=== PATIENT | female | born 1945 | race Caucasian/White ===

== ENCOUNTER 2016-04-02 14:26 | Inpatient (IN) | payer MEDICARE ==
[~2016-04-02] VITALS: Ht 162.6 cm; Wt 114.5 kg
[2016-04-02] MEDS ORDERED: ANORO ELLIPTA1 EACH INH (14:58)
[2016-04-02] MEDS ORDERED: CALCIUM 600 +1 EAC3 PO (14:59)
[2016-04-02] MEDS ORDERED: FUROSEMIDE20 MG PO (15:01)
[2016-04-02] MEDS ORDERED: CATAPRES0.1 MG PO (15:01)
[2016-04-02] MEDS ORDERED: SYNTHROID125 MCG PO (15:02)
[2016-04-02] MEDS ORDERED: METOPROLOL TART50 MG PO (15:03)
[2016-04-02] MEDS ORDERED: MUCINEX D1 TAB.SR . PO (15:04)
[2016-04-02] MEDS ORDERED: OMEPRAZOLE20 M1 PO (15:05)
[2016-04-02] MEDS ORDERED: K-DUR20 MEQ PO (15:05)
[2016-04-02] MEDS ORDERED: ZOCOR40 MG PO (15:06)
[2016-04-02] MEDS ORDERED: SINGULAIR10 MG PO (15:06)
[2016-04-02] MEDS ORDERED: DIOVAN HCT 80-11 TAB PO (15:07)
[2016-04-02] MEDS ORDERED: TOPAMAX50 MG PO (15:07)
[2016-04-02] MEDS ORDERED: VITAMIN D5000 UNIT PO (15:08)
[2016-04-02] MEDS ORDERED: KLONOPIN0.5 MG PO (15:10)
[2016-04-02] MEDS ORDERED: IPRAT-ALBUT 0.5-3 ML UPD (15:12)
[2016-04-02] MEDS ORDERED: ZOFRAN4 MG PO (15:13)
[2016-04-02] MEDS ORDERED: EFFEXOR XR75 MG PO (15:14)
[2016-04-02] MEDS ORDERED: TRAZODONE HCL150 MG PO (15:14)
[2016-04-02 16:06] LABS: BASOPHILS 0.3 % (0.0-2.0); EOSINOPHILS 0.8 % (0-7); HEMATOCRIT 42.3 % (36.0-48.0); HEMOGLOBIN 13.7 g/dL (12-16); IMMATURE GRANULOCYTES 0.2 % (0-5); LYMPHOCYTES 16.3 % (15-50); MCH 30.9 pg (26.0-34.0); MCHC 32.4 g/dL (31.0-37.0); MCV 95.3 fL (80.0-100.0); MEAN PLATELET VOLUME 11.8 fL (7.4-10.4); MONOCYTES 8.3 % (2-11); NEUTROPHILS 74.1 % (40-80); PLATELET COUNT 224 10x3/uL (130-400); RBC 4.44 10x6/uL (4.00-5.40); RDW 14.1 % (11.5-14.5)
[2016-04-02 16:19] VITALS: BP 131/86
[2016-04-02 16:37] LABS: ALBUMIN 4.3 g/dL (3.4-5.0); ANION GAP 18.5 mmol/L (8-16); BILIRUBIN - TOTAL 0.63 mg/dL (0.2-1.3); CARBON DIOXIDE 27.5 mmol/L (21.0-32.0); CHOL - HDL RATIO 3.1 ratio (2.3-4.1); CREATININE - SERUM 1.2 mg/dL (0.6-1.3); LDL-HDL RATIO 1.7 ratio (1.5-3.5); PROTEIN - SERUM 7.3 g/dL (6.4-8.2); THYROID STIMULATING HORMONE 8.08 uIU/mL (0.36-3.74)
--- NOTE | 2016-04-02 18:24 | NUR ---
PATIENT IS RESTLESS, ANXIOUS, UNREDIRECTABLE AND AGITATED. HALDOL 5MG IM ADMINISTERED PER PHYSICIAN ORDERS.
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
[2016-04-02 19:30] VITALS: BP 141/85
--- NOTE | 2016-04-02 20:33 | NUR ---
B) Patient remains suspicious and she is watchful, she is ready for bed. She can stand and pivot and transfer to get in bed, but she does not ambulate. Bilat. lower legs edematous. Patient did c/o yeast in groinal area. I) Provide prescribed meds. R) Patient is resting she doesn't want to do anything at this time. Will offer meds shortly. P) Continue plan of care.
--- NOTE | 2016-04-03 08:15 | NUR ---
IN AND OUT CATH DONE TO OBTAIN URINE FOR UA WITH C & S. TAKEN TO LAB.
[2016-04-03 08:35] LABS: APPEARANCE SLT CLOUDY (CLEAR); BACTERIA MODERATE /hpf (NONE SEEN); BILIRUBIN NEGATIVE (NEGATIVE); COLOR YELLOW (YELLOW); GLUCOSE NEGATIVE (NEGATIVE); KETONE SMALL mg/dL (NEGATIVE); LEUKOCYTE ESTERASE 1+ (NEGATIVE); NITRITE NEGATIVE (NEGATIVE); PROTEIN NEGATIVE (NEGATIVE); RED CELLS - URINE 0-5 /hpf (0-5); SPECIFIC GRAVITY 1.025 (1.005-1.020); UROBILINOGEN NORMAL (NORMAL); WHITE CELLS - URINE 25-50 /hpf (0-5)
--- NOTE | 2016-04-03 14:24 | NUR ---
(B)RECEIVED PATIENT LAYING IN BED. SUSPICIOUS AND GUARDED. WILL FLENCH WHEN REACHING OUT TO TOUCH HER. ORIENTED X3. RELATES THE REASON FOR HOSPITALIZATION "I WAS TOLD TO GET MY MEDICATION ADJUSTED." WHEN DISCUSSING THE REASON FOR ADMISSION WAS REPORTED SHE BELIEVES SHE CAN HEAR PEOPLE'S THOUGHTS. PATIENT NODS "YES" AND WHEN ASKED IF SHE IS STILL HEARING PEOPLES THOUGHTS SHE CONFIRMED "YES" THAT TELL HER "WHAT TO DO AND WHAT NOT TO DO. SOMETIMES BAD THINGS AND SOMETIMES GOOD THINGS." SOCIALLY WITHDRAWN. TALKED WITH PATIENT SHE IS HAVING AUD NARANJO. (I)ADMINISTER MEDS AND MONITOR COMPLIANCE. ENCOURAGE PATIENT TO NOTIFY STAFF IF HEARS THOUGHTS OR VOICES. (R)MED COMPLIANT. REMIANS SOCIALLY WITHDRAWN. SCANS ROOM. ONLY RESPONDS WHEN APPROACHED BY STAFF. (P)CONTINUE POC AND MAINTAIN FALL PRECAUTIONS.
[2016-04-03 17:07] VITALS: Ht 162.6 cm; Wt 114.5 kg
[2016-04-03 20:00] VITALS: BP 114/73
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
[2016-04-04 07:41] VITALS: BP 104/70
--- NOTE | 2016-04-04 11:07 | NUR ---
PT IS RESISTANT TO CARE AND VERY AGITATED THIS MORNING. REDIRECTION DONE NEEDED. ORIENTED TO PERSON ONLY. FLAT AFFECT WITH NO EYE CONTACT. NO SIGNS OF HALLUCINATIONS NOTED. FALL PRECAUTIONS MAINTAINED. MED COMPLIANT. NO AGGRESSION NOTED. WILL CONTINUE WITH PLAN OF CARE.
[2016-04-04 19:30] VITALS: BP 106/74
--- NOTE | 2016-04-04 20:38 | NUR ---
RECEIVED SETTING IN RECLINER WITH PEERS AT HER SIDE. NOT SOCIALIZING. CALM AND COOPERAITVE WITH CARE AND AND ASSESSMENT. NO SIGNS OF AGGRESSION. NO SCREAMING OUT. ENCOURAGE TO EXPRESS NEEDS. PM MEDS GIVEN ORDERED. CONTINUES TO REST QUIETLY IN RECLINER. CONTINUE PLAN OF CARE.
[2016-04-05 07:38] VITALS: BP 112/64
[2016-04-05 10:11] LABS: VITAMIN D 25 HYDROXY 45.4 ng/mL (30.0-100.0)
--- NOTE | 2016-04-05 10:31 | PSY ---
PATIENT NAME:JULIO LEE MEDICAL RECORD: [id number] : 49 LOCATION:[facility]el2 ADMISSION DATE: 04/02/16 ACCOUNT: [id number] PSYCHIATRIC EVALUATION DATE OF EVALUATION: 04/03/16 IDENTIFYING DATA: This is one of numerous lifetime psychiatric contacts and hospitalizations, but the first skilled nursing admission for this 70-year-old white female. HISTORY OF PRESENT ILLNESS: This patient has received psychiatric care for the majority of her adult life. She has carried a diagnosis of schizophrenia, paranoid type in the past, although it is of interest to note that she is not currently receiving a routine neuroleptic medications. She is a resident of a local fdc and had become increasingly suspicious, paranoid, uncooperative and noncompliant with staff. Because of worsening psychosis and potential for harm to self and/or others, the patient was admitted. The patient has been hospitalized at the psychiatric unit at [facility] in the past. She has had other hospitalizations at [facility] in the past, but details are not currently available. There is a history also of developmental delay. MEDICATION: At the time of admission, current reported medications have included clonidine, Lasix, Synthroid, Lopressor, omeprazole, potassium, Zocor, Topamax, Diovan, trazodone and Zofran as well as on the Effexor. PAST MEDICAL HISTORY: The patient has morbid obesity. She has a history of hypertension, hypothyroidism, hypercholesterolemia, inhalant allergies and GERD. FAMILY HISTORY: Noncontributory. SOCIAL HISTORY: The patient is not an active smoker, although she was previously. She denies alcohol or drug use. ALLERGIES: INCLUDE AMPICILLIN AND PREDNISONE. MENTAL STATUS: On interview, this is a morbidly obese, extremely suspicious and paranoid white female who responds minimally to the examiner. She has a heightened startle response. She clearly appears to be attending to internal stimuli. The patient states that she can hear other people's thoughts and that she hears voices constantly. She exhibits some paranoid delusional ideation regarding people in her surroundings. She does not respond unless directly addressed. Mood is quite anxious. Affect is peculiar. Speech is low in volume at times; other times loud and flow of thought shows severe loosening of associations. Content of thought is floridly positive for auditory hallucinations, delusions and ideas of reference. The patient is oriented to person and the fact that she is hospitalized, she does not cooperate further for sensorium testing. DIAGNOSTIC IMPRESSION: AXIS I: Schizophrenia, paranoid type - chronic. AXIS II: No diagnosis. AXIS III: Hypothyroidism, hypertension, gastroesophageal reflux disease, inhalant allergies and morbid obesity. AXIS IV: Severe. AXIS V: 32. PLAN: 1. The patient is admitted for further medication revision. 2. Diet and activities as tolerated. 3. We will coordinate with fdc and referring agencies regarding followup care. TRANSINT:[id number] Voice Confirmation ID: [id number] DOCUMENT ID: [id number] KALEY ISRAEL III, MD at 1031 CC: [id number] DICTATION DATE: 04/03/161833 BEAN DUMPER: 04/03/162012 ADM IN [facility] [address] [place] [address]
--- NOTE | 2016-04-05 17:58 | NUR ---
Oriented to name only, flat affect, sits quietly isolated from others. Cooperative with care. No paranoia nor aggression. No evidence of hallucinations. Med compliant. Redirect and reorient as need. No evidence of reorientation. Fall precatuions in place, chair alarm in place and functioning properly. Continue with plan of care.
--- NOTE | 2016-04-05 19:57 | NUR ---
RECEIVED IN DAYROOM. SETTING AT TABLE WITH STAFF AND PEERS. NOT SOCIALIZING. WATCHING OTHERS. CALM AND COOPERATIVE WITH CARE AND ASSESSMENT. NO SIGNS OF AGGRESSION. NO SIGNS OF HALLUCINATIONS. REDIRECT AND REORIENT NEEDED. CONTINUES TO SET QUIETLY AT TABLE. CONTINUE PLAN OF CARE
[2016-04-05 19:58] VITALS: BP 84/42
[2016-04-06 03:09] LABS: RAPID PLASMA REAGIN Non Reactive (Non Reactive)
[2016-04-06 09:19] LABS: FOLATE (FOLIC ACID) - SERUM 9.5 ng/mL (>3.0)
--- NOTE | 2016-04-06 09:34 | NUR ---
Nutrition Follow Up: Chart reviewed. Pt is eating 68% on a regular diet. +BM 04/04/16. Meds noted including Lasix and Vit D. No new labs to assess. Wt loss since admit - scales? Pt with good po intake at this time. Rec continue current diet. RD following.
[2016-04-06 10:07] VITALS: BP 104/46
--- NOTE | 2016-04-06 10:30 | NUR ---
Alert and oriented to name and place states " at the hospital long term unit for my medications to be adjusted." Pleasant mood, making better eye contact today and is looking around the room at others. No noted or verbalized paranoia of hearing people. No aggression. med compliant. Fall precautions in place. Continue with plan of care and monitoring.
--- NOTE | 2016-04-06 10:39 | PN ---
PATIENT:JULIO LEE MEDICAL RECORD: [id number] LOCATION:[facility] Goode ADMISSION DATE: 04/02/16 PROGRESS NOTE DATE OF SERVICE: 04/05/2016 SUBJECTIVE: The patient states that she is cold. OBJECTIVE: The staff reports the patient is exhibiting very prominent memory deficits. She requires reorientation from time to time. During the interview, the patient seemed confused as to where she had been living prior to coming to the hospital. On exam, mood is somewhat perplexed. Affect is very shallow. Speech is terse with a great deal of latency. Content of thought is negative for overt psychosis. Sensorium testing reveals the patient is oriented to person and the fact that she is in a hospital, she is not correctly oriented as to time. She shows deficits in all phases of memory. ASSESSMENT: Primary diagnosis is Alzheimer dementia with behavioral disturbance, past history of schizophrenia. PLAN: 1. We will add Zyprexa 5 mg b.i.d. 2. Continue other current medications. 3. Continue supportive therapy. TRANSINT:[id number] Voice Confirmation ID: [id number] DOCUMENT ID: [id number] KALEY ISRAEL III, MD at 1039 CC: [id number] DICTATION DATE: 04/05/16 1155 SUPERVISOR BRIAR SHOP: 04/05/16 1336 ADM IN [place] [id number] [place] [id number]
[2016-04-06 19:39] VITALS: BP 97/65
--- NOTE | 2016-04-06 20:43 | NUR ---
B) Patient is hallucinating, she denenies, she is watchful and guarded and gets short when asked the same question or any question as she is unable to focus on what is being asked of her or if it is her voices. She will say she is able to read minds. Patient is able to stand and transfer, but mostly stays in the w/c. I) Provide prescribed meds. R) Patient is compliant with meds, but quite suspicious, she asked what each med was. P) Continue plan of care.
[2016-04-07 07:40] VITALS: BP 118/65
--- NOTE | 2016-04-07 10:37 | PN ---
PATIENT:JULIO LEE MEDICAL RECORD: [id number] LOCATION:[facility]FR[facility] Pandey112 ADMISSION DATE: 04/02/16 PROGRESS NOTE DATE OF SERVICE: 04/06/2016 SUBJECTIVE: No new complaint. OBJECTIVE: The patient is eating somewhat better. She is for the most part quiet and cooperative. She is tolerating medication changes well. On exam, mood is euthymic. Affect is very reserved. Speech rather terse. Content of thought is negative for overt psychosis. Sensorium shows no change. ASSESSMENT: No change in diagnosis. PLAN: 1. Maintain current medications. 2. Continue supportive therapy. TRANSINT:[id number] Voice Confirmation ID: [id number] DOCUMENT ID: [id number] KALEY ISRAEL III, MD at 1037 CC: [id number] DICTATION DATE: 04/06/16 1213 STATOR TESTER: 04/06/16 1230 ADM IN [place] [id number]
--- NOTE | 2016-04-07 14:30 | NUR ---
(B) PATIENT SITTING IN A CHAIR AT THE NURSE'S STATION. ORIENTED TO SELF, [facility]. RELATES REASON FOR HOSPITALIZATION IS "TO GET MY MEDICATON ADJUSTED." APPROPRIATE WHEN APPROACHED HOWEVER IS WITHDRAWN AND DOES NOT INITIATE CONVERSATION. SITS ALONE AND WATCHES OTHERS. (I)ADMINISTER MEDS AND MONITOR COMPLIANCE. ENCOURAGE PATIENT TO INTERACT WITH PEERS AND PARTICIPATE IN GROUP ACTIVITIES. (R)MED COMPLIANT. REMAINS SOCIALLY WITHDRAWN AND DOES NOT INITIATE INTERACTION. COOPERATIVE WITH UNIT MILEU. (P)CONTINUE POC AND MAINTAN FALL PRECAUTIONS.
--- NOTE | 2016-04-07 20:38 | NUR ---
RECEIVED IN DAYROOM. SETTING IN WHEELCHAIR WITH PEERS BY HER SIDE. NOT SOCIALIZING. CALM AND COOPERATIVE WITH CARE AND ASSESSMENT. NO SIGNS OF AGGRESSION. REDIRECT AND REORIENT NEEDED. SETTING IN HALLWAY QUIETLY WITH PEERS BY HER SIDE. CONTINUE PLAN OF CARE
[2016-04-08 08:04] VITALS: BP 108/66
--- NOTE | 2016-04-08 11:22 | PN ---
PATIENT:JULIO LEE MEDICAL RECORD: [id number] LOCATION:[facility] InfanteHansel112 ADMISSION DATE: 04/02/16 PROGRESS NOTE DATE OF SERVICE: 04/07/2016 SUBJECTIVE: No new complaint. OBJECTIVE: The patient is exhibiting a fair amount of latency in her speech. She does continue to have persistent memory difficulties. We will ask Dr. Jj to assess her. On exam, mood is euthymic, affect is rather ____ and constricted. Speech is low in volume and show latency. Content of thought negative for overt psychosis. Sensorium shows no change. ASSESSMENT: No change in diagnoses. PLAN: 1. Maintain current medications. 2. Continue supportive therapy. TRANSINT:[id number] Voice Confirmation ID: [id number] DOCUMENT ID: [id number] KALEY ISRAEL III, MD at 1122 CC: [id number] DICTATION DATE: 04/07/16 1205 SYRUP MAKER COOK: 04/07/16 1937 ADM IN [facility] [address] [place] [id number]
--- NOTE | 2016-04-08 14:33 | NUR ---
(B)PATIENT SITTING IN A CHAIR AT THE NURSE'S STATION. ORIENTED X3. RELATES REASON FOR HOSPITALIZATION "COME IN TO GEY MY MEDICATIONS ADJUSTED." SOCIALLY WITHDRAWN. CALM AND COOPERATIVE. MAKES NEEDS KNOWN TO STAFF, (I)ADMINISTER MEDS AND MONITOR COMPLIANCE. ENCOURAGE TO INTERACT WITH PEERS. (R)MED COMPLIANT. REMAINS WITHDRAWN. SITS AND WATCHES TV. POOR INTERACTION. (P)CONTINUE POC AND MAINTAIN FALL PRECAUTIONS.
[2016-04-08 19:30] VITALS: BP 91/41
--- NOTE | 2016-04-09 00:35 | NUR ---
B) Showered with assist of two staff. Initially refused but explained to patient that she has a strong body odor and needs to be cleaned well in je area and under abdominal folds to put powder to heal these reddened yeasty areas. No paranoid delusional statements made. Very little conversation, quiet, isolates from others. Low BP this evening, checked x 3. BP= 86/42, 89/38, 91/41. Patient was experiencing weakness across her shoulders and down her right leg, "I don't feel well." I) Administer medications as ordered, redirect and reorient PRN. R) Compliant with medications. HS doses of Lopressor and Clonidine were held due to her low BP. No tearful episodes this evening. No signs of altered reality perception. P) Continue to monitor per plan of care.
--- NOTE | 2016-04-09 03:47 | PN ---
PATIENT:JULIO LEE MEDICAL RECORD: [id number] LOCATION:[facility] Goode ADMISSION DATE: 04/02/16 PROGRESS NOTE DATE OF SERVICE: 04/08/2016 SUBJECTIVE: No new complaint. OBJECTIVE: The patient has been doing fairly well. She is tolerating all medications without any difficulty. She has been cooperative with staff. On exam, mood is euthymic. Affect is very reserved. Speech is low in volume. Content of thought is negative for overt psychosis. Sensorium shows no change. ASSESSMENT: No change in diagnosis. PLAN: 1. Continue all current medications. 2. Continue supportive therapy. TRANSINT:[id number] Voice Confirmation ID: [id number] DOCUMENT ID: [id number] KALEY ISRAEL III, MD at 0347 CC: [id number] DICTATION DATE: 04/08/16 1204 AUTOMATIC VULCANIZING LEAD OPERATOR: 04/08/[address] [facility] [address] [place] [address]
[2016-04-09 06:30] VITALS: BP 122/58
[2016-04-09 08:12] VITALS: BP 111/59
--- NOTE | 2016-04-09 11:00 | NUR ---
Dr. Jj came and provided a SLUMS test. Patient scored a 21/30.
--- NOTE | 2016-04-09 13:49 | NUR ---
B.) Alert and oriented to name,place and situation. States, " I'm here to have my medications adjusted. Does not converse unless spoken to. I.) Administer medications and monitor compliance. Redirect and reorient as need. Encourage socailization with peers. Monitor safety. R.) Complaint with medications, isolatory and does not socialize with others unless approached. Does verbalize needs. Participated in group. Sits quietly scanning room and observing. P.) Continue plan of care.
--- NOTE | 2016-04-09 16:10 | NUR ---
When this nurse approached patient to turn w/c around patient jumped even though nurse explained that she would need to turn her around as she had requested to color some pictures with crayons at the table. Patient suspicious, but less nervous than when first admitted. Continue to monitor behavior.
[2016-04-09 19:24] VITALS: BP 110/59
--- NOTE | 2016-04-09 22:41 | NUR ---
B) Recieved sitting in the day room, alert and oriented, knows she is here to have her medications adjusted, calm and quiet, keeps to herself, I) Administered medications, encourged conversation, R) Medication compliant, friendly when spoken to, pleasant, P) Continue plan of care, continue to monitor.
[2016-04-10 07:56] VITALS: BP 137/68
--- NOTE | 2016-04-10 12:54 | PN ---
PATIENT:JULIO LEE MEDICAL RECORD: [id number] LOCATION:[facility] PandeyBrian ADMISSION DATE: 04/02/16 PROGRESS NOTE DATE OF SERVICE: 04/09/2016 SUBJECTIVE: The patient's case was discussed with staff. She has no new complaint. OBJECTIVE: The patient is in good behavioral control with limited insight about her condition. She does tolerate her medicines well. ASSESSMENT: No change in diagnoses. PLAN: Current medicines and therapies have been reviewed and will be maintained. Her long-term prognosis is guarded. TRANSINT:[id number] Voice Confirmation ID: [id number] DOCUMENT ID: [id number] EDWARD GILMORE MD at 1254 CC: [id number] DICTATION DATE: 04/09/16 1222 FARM MANAGEMENT AGENT: 04/09/16 1719 ADM IN [place] [id number] [place] [address]
--- NOTE | 2016-04-10 12:54 | NUR ---
B) Patient is awake and alert, she says she is here to get her medications changed, she is content to color and do word searches. She can stand and needs assist to transfer. Have not seen her watching people today and does not act like she is hearing voices. I) Provide prescribed meds, redirect and reorientate as needed. R) Patient is compliant with medications and she has been very pleasant, she still has reddened areas in her perineal area and under breasts. P) Continue plan of care.
[2016-04-10 19:30] VITALS: BP 93/50
--- NOTE | 2016-04-11 02:25 | NUR ---
B) Recieved sitting in the day room, watching TV, alert and oriented x 3, calm and cooperative with staff, I) Administered perscribed medications, R) Medication compliant, social with staff, keeps to herself, P) Continue plan of care, continue to monitor.
[2016-04-11 08:38] VITALS: BP 127/69
--- NOTE | 2016-04-11 09:48 | NUR ---
PT IS CALM, COOPERATIVE. MED COMPLIANT. NO AGGRESSION NOTED. NO HALLUCINATIONS NOTED. ORIENTED TO PERSON ONLY. REDIRECTED NEEDED. FALL PRECAUTIONS MAINTAINED. WILL CONTINUE TO MONITOR AND CONTINUE WITH PLAN OF CARE.
[2016-04-11 19:30] VITALS: BP 102/58
--- NOTE | 2016-04-11 19:51 | NUR ---
REECIVED IN DAYROOM. SETTING IN WHEELCHAIR WITH PEERS AT HER SIDE. COLORING AT THIS TIME.. CALM AND COOPERATIVE WITH CARE AND ASSESSMENT. NO SIGNS OF AGGRESSION. NO SIGNS OF PARANOIA. ENCOURAGE TO EXPRESS NEEDS. REMAINS AT TABLE COLORING . CONTINUE PLAN OF CARE
[2016-04-12 11:20] VITALS: BP 113/59
[2016-04-12] MEDS ORDERED: DIFLUCAN100 MG PO (12:04)
[2016-04-12] MEDS ORDERED: ZYPREXA ZYDI5 MG/TAB PO (12:06)
[2016-04-12] MEDS ORDERED: HCTZ25 MG PO (12:06)
[2016-04-12] MEDS ORDERED: DIOVAN80 MG PO (12:06)
[2016-04-12] MEDS ORDERED: FLORAJEN3 CAPS460 MG PO (12:07)
[2016-04-12] MEDS ORDERED: VITAMIN B-121000 MCG PO (12:07)
--- NOTE | 2016-04-12 17:42 | NUR ---
Alert and oriented times 3, calm and ccoperative. Smiling today and is social with staff. Patient is social with other peers today. No paranoia nor aggression. Med compliant. Participates n group. Fall safety maintained. Continue with plan of care.
--- NOTE | 2016-04-12 19:41 | NUR ---
RECEIVED IN DAYROOM. SETTING QUIETLY IN CHAIR. CALM AND COOPERATIVE WITH CARE AND ASSESSMENT. NO SIGNS OF AGGRESSION. NO SIGNS OF PARANOIA. ENCOURAGE TO EXPRESS NEEDS. CONTINUES TO SET ING CHAIR QUIETLY. CONTINUE PLAN OF CARE
[2016-04-12 20:37] VITALS: BP 86/44
--- NOTE | 2016-04-13 01:03 | PN ---
PATIENT:JULIO LEE MEDICAL RECORD: [id number] LOCATION:[facility] Infante[facility]el112 ADMISSION DATE: 04/02/16 PROGRESS NOTE DATE OF SERVICE: 04/12/2016 SUBJECTIVE: No new complaint. OBJECTIVE: On approach, the patient is pleasant and cooperative. Mood is euthymic. Affect is calm. She is tolerating medications well, no behavioral problems. Sensorium is unchanged. ASSESSMENT: No change in diagnosis. PLAN: 1. Continue all current medications. 2. Anticipate discharge tomorrow. TRANSINT:[id number] Voice Confirmation ID: [id number] DOCUMENT ID: [id number] KALEY ISRAEL III, MD at 0103 CC: [id number] DICTATION DATE: 04/12/16 1211 CONTROL ELECTRICIAN: 04/12/16 1256 ADM IN [place] [id number] [place] [address]
--- NOTE | 2016-04-13 09:10 | NUR ---
Nutrition Follow Up: Chart reviewed. Pt is eating 100% meal avg on a Regular diet. +BM 04/12/16. Meds noted including Lasix. No new labs to assess. Rec continue current diet. RD following.
[2016-04-13 14:08] VITALS: BP 117/65
--- NOTE | 2016-04-13 18:28 | NUR ---
RECEIVED THIS AM SITTING IN WHEELCHAIR IN HALLWAY AT NURSES STATION.IS ORIENTED TO SELF ONLY.NO AGGRESSION OBSERVED.IS COMPLIANT WITH MEDS.COOPERATIVE WITH STAFF.WILL CONTINUE WITH PLAN OF CARE,MONITOR FOR CHANGES AND SAFETY.
[2016-04-13 19:28] VITALS: BP 107/46
--- NOTE | 2016-04-13 20:54 | NUR ---
RECEIVED IN DAYROOM. SETTING IN WHEELCHAIR WITH PEERS AT HER SIDE. SOCIALIZING WITH PEERS AT TIMES. IN GOOD SPIRITS. ENCOURAGE TO EXPRESS NEEDS. PM MEDS GIVEN ORDERED. TRANSFERE TO BED AT THIS TIME. CONTINUE PLAN OF CARE
--- NOTE | 2016-04-14 05:47 | PN ---
PATIENT:JULIO LEE MEDICAL RECORD: [id number] LOCATION:[facility] Pandey112 ADMISSION DATE: 04/02/16 PROGRESS NOTE DATE OF SERVICE: 04/13/2016 SUBJECTIVE: The patient expresses disappointment that she is not being discharged today. OBJECTIVE: Unfortunately, due to a lack of timely submission of the original H&P, a level 2 screen by [employer] is now required, does delaying the patient's discharge. Aside from this, the patient is stable. No change in treatment plan is indicated. On exam, the patient is somewhat irritable. Affect is slightly brittle. Speech is fluent. Content of thought is unchanged. Sensorium is unchanged. ASSESSMENT: No change in diagnosis. PLAN: 1. We will await results of level 2 screen. 2. Continue current treatment plan. TRANSINT:[id number] Voice Confirmation ID: [id number] DOCUMENT ID: [id number] KALEY ISRAEL III, MD at 0547 CC: [id number] DICTATION DATE: 04/13/16 1209 FOUNDER AND CHIEF TECHNICAL OFFICER: 04/13/16 1247 ADM IN [place] [id number] [place] [id number]
[2016-04-14 07:57] VITALS: BP 127/58
--- NOTE | 2016-04-14 13:00 | NUR ---
B) Patient is awake and alert, she is oriented times three, she has not made any mention of hallucinations or acted like she is listening to voices and no mention of her being able to read minds today. Patient is able to assist and transfer with assist, but she does not ambulate. Uses a w/c and staff mostly helps her. I) Provide prescribed meds and encourage groups. R) Patient is compliant with meds and she is interacting with staff and some peers. P) Continue plan of care.
--- NOTE | 2016-04-14 17:05 | PN ---
PATIENT:JULIO LEE MEDICAL RECORD: [id number] LOCATION:[facility] Goode ADMISSION DATE: 04/02/16 PROGRESS NOTE DATE OF SERVICE: 04/14/2016 SUBJECTIVE: No new complaint. OBJECTIVE: The patient has been doing well. She is tolerating medications without difficulty. Mood and affect have cleared considerably. Sensorium is clear and we are simply awaiting approval from [employer]. On exam, mood is euthymic. Affect is bland. Speech is fairly fluent. Content of thought is negative for overt psychosis. Sensorium is unchanged. ASSESSMENT: No change in diagnoses. PLAN: 1. Maintain present medications. 2. Continue supportive therapy. TRANSINT:[id number] Voice Confirmation ID: [id number] DOCUMENT ID: [id number] KALEY ISRAEL III, MD at 1705 CC: [id number] DICTATION DATE: 04/14/16 1112 SPLICING TECHNICIAN: 04/14/16 1140 ADM IN [place] [id number] [place] [address]
[2016-04-14 19:27] VITALS: BP 117/64
--- NOTE | 2016-04-14 23:35 | NUR ---
B)Recieved sitting in the day room, alert and oriented, calm and cooperative, social with staff, ambulates by wheelchair, I) Administered perscribed medications whole withwater, R) Medication compliant, friendly and pleasant, P) Continue plan of care, continue to monitor.
[2016-04-15 07:50] VITALS: BP 126/55
--- NOTE | 2016-04-15 11:46 | NUR ---
B) Patient is awake and alert, she is calm, oriented x3, has not made any complaints about hearing voices or believing she can read people's minds. She is pleasant and calmly waiting for d/c. I) Provide prescribed meds. R) Patient does have yeast under her breasts in abdominal fold and je area. The area is odoriferous and has to be cleansed daily with powder applied, she is on oral diflucan, the areas are healing, but it remains with yeast. Patient is compliant with meds and unit milieu, she interacts in groups and activities. P) Continue plan of care.
[2016-04-15 22:07] VITALS: BP 114/64
--- NOTE | 2016-04-16 00:46 | NUR ---
B) Recieved sitting in the day room, alert and oriented X 3, watching TV, calm and cooperative with staff, I) Administered perscribed medications, redirect and oriented as needed, R) Medication compliant, social with staff, friendly and pleasant, P) Continue plan of care, continue to monitor.
[2016-04-16 08:55] VITALS: BP 106/66
--- NOTE | 2016-04-16 09:20 | PN ---
PATIENT:JULIO LEE MEDICAL RECORD: [id number] LOCATION:[facility] ADMISSION DATE: 04/02/16 PROGRESS NOTE DATE OF SERVICE: 04/15/2016 SUBJECTIVE: No new complaint. OBJECTIVE: The patient has been pleasant, alert and cooperative. She is tolerating medications well. On exam, mood is euthymic. Affect bland. Speech is fairly fluent. Content of thought is negative for overt psychosis. Sensorium unchanged. ASSESSMENT: No change in diagnosis. PLAN: 1. Continue current medications. 2. Continue supportive therapy. TRANSINT:[id number] Voice Confirmation ID: [id number] DOCUMENT ID: [id number] KALEY ISRAEL III, MD at 0920 CC: [id number] DICTATION DATE: 04/15/16 1227 CPC: 04/15/16 1259 ADM IN [place] [id number] [place] [id number]
--- NOTE | 2016-04-16 12:15 | NUR ---
B) Patient is oriented x3, she is pleasant, she has stated that she hopes we tell the social security assessor that she does not want to go back to [place]. Will relay this message. She is able to stand and transfer, she does not self propel in w/c. I) Provide prescribed meds and encourage patient to participate in groups and activities. R) Patient is compliant with meds and enjoys groups and activities. P) Continue plan of care.
[2016-04-16 19:30] VITALS: BP 113/66
--- NOTE | 2016-04-17 01:14 | NUR ---
Patient in dayroom, oriented to person, place, time and situation. Calm, cooperated with medication. Continue to monitor, continue plan of care.
[2016-04-17 09:03] VITALS: BP 104/57
--- NOTE | 2016-04-17 11:26 | NUR ---
B.) Alert and oriented time three, patient is cooperative and pleasant, good eye contact and is social with nurse. Continues to state she is here for medication adjustment, added this am that she thought medications were working. I.) Administer medications and monitor compliance, assess for any behavior changes. Monitor safety. R.) Compliant with medications, smiles and is social with staff, likes to do activites. Transfers with assist, does not self propel in W/C. Safety maintained. P.) Continue with plan of care and monitoring.
[2016-04-17 19:30] VITALS: BP 117/43
--- NOTE | 2016-04-17 20:45 | NUR ---
B) Recieved sitting in the day room, alert and oriented X 3, calm and cooperative with staff, I) Administered perscribed mediations, redirected and oriented as needed, R) Medication compliant, pleasant and friendly, P) Continue plan of care, continue to monitor.
--- NOTE | 2016-04-18 07:54 | PN ---
PATIENT:JULIO LEE MEDICAL RECORD: [id number] LOCATION:[facility] ADMISSION DATE: 04/02/16 PROGRESS NOTE DATE OF SERVICE: 04/16/2016 SUBJECTIVE: No new verbal complaint. OBJECTIVE: The patient has remained cooperative. We are still awaiting results from the [facility] regarding discharge. On exam, mood is euthymic. Affect is bland. Speech fairly fluent. Content of thought is negative for overt psychosis. Sensorium is unchanged. ASSESSMENT: No change in diagnosis. PLAN: 1. Continue present medications. 2. Continue supportive therapy. TRANSINT:[id number] Voice Confirmation ID: [id number] DOCUMENT ID: [id number] KALEY ISRAEL III, MD at 0754 CC: [id number] DICTATION DATE: 04/16/16 1048 ACTIVITY ASSISTANT: 04/16/16 1258 ADM IN [facility] [address] [place] [id number]
[2016-04-18 10:07] VITALS: BP 128/63
--- NOTE | 2016-04-18 14:32 | NUR ---
CALM COOPERATIVE WITH CARE. NO AGGRESSION NOTED. NO PARANOIA OR DELUSIONS NOTED. ORIENTED TO PERSON, PLACE, AND TIME. ENCOURAGED PT TO EXPRESS FEELINGS AND PARTICIPATE IN GROUPS. MED COMPLIANT. WILL CONTINUE TO MONITOR AND CONTINUE FALL PRECAUTIONS. WILL CONTINUE WITH PLAN OF CARE.
[2016-04-18 19:30] VITALS: BP 112/53
--- NOTE | 2016-04-18 19:59 | NUR ---
RECEIVED IN DAYROOM. SETTING IN WHEELCHAIR WITH STAFF AND PEERS. CALM AND COOPERATIVE WITH CARE AND ASSESSMENT. NO SIGNS OF PARANOIA. ALERT AND ORIENTED X3. IN GOOD SPIRITS. STATES SHE IS LOOKING FORWARD TO DISCHARGE. REMAINS IN WHEELCHAIR SETTING QUIETLY. CONTINUE PLAN OF CARE
[2016-04-19 10:31] VITALS: BP 115/66
--- NOTE | 2016-04-19 17:40 | NUR ---
RECEIVED THIS AM SITTING IN CHAIR IN HALLWAY AT [facility]URSES STATION.IS ORIENTED.CALM AND COOPERATIVE.MED COMPLIANT.NO AGGRESSION OBSERVED.VISITS WITH ANOTHER FEMALE PEER BUT IS OTHERWISE QUITE AND OBSERVANT OF OTHERS.WILL CONTINUE WITH PLAN OF CARE MONITOR FOR CHANGES AND SAFETY.
[2016-04-19 20:00] VITALS: BP 122/46
--- NOTE | 2016-04-19 20:00 | NUR ---
RECEIVED IN DAYROOM. SETTING IN A RECLINER BESIDE A PEER. SOCIALIZING AT TIMES. CALM AND COOPERATIVE WITH CARE AND ASSESSMENT. NO SIGNS OF PARANOIA. NO SIGNS OF AGGRESSION. ALERT AND ORIENTED X3. ENCOURAGE TO EXPRESS NEEDS. CONTINUES TO REST IN RECLINER. CONTINUE PLAN OF CARE
[2016-04-20 08:24] VITALS: BP 127/62
--- NOTE | 2016-04-20 10:18 | NUR ---
Nutrition Follow Up: Chart reviewed. Pt is eating 99% meal avg on a Regular diet. +BM 04/19/16. No new labs to assess. Meds noted including Lasix. Pt with excellent po intake. Rec continue current diet. Will continue to send selective menus and honor food preferences. RD following.
--- NOTE | 2016-04-20 11:28 | PN ---
PATIENT:JULIO LEE MEDICAL RECORD: [id number] LOCATION:[facility] ADMISSION DATE: 04/02/16 PROGRESS NOTE DATE OF SERVICE: 04/19/2016 SUBJECTIVE: No new complaint. OBJECTIVE: The patient has remained very cooperative over the weekend. We are continuing to await decision from [facility] regarding discharge. On exam, mood pleasant. Affect is bland. Speech is well modulated and fluent. Content of thought is negative for overt psychosis. Sensorium shows no changes. ASSESSMENT: No change in diagnosis. PLAN: 1. Maintain current medication. 2. Continue supportive therapy. TRANSINT:[id number] Voice Confirmation ID: [id number] DOCUMENT ID: [id number] KALEY ISRAEL III, MD at 1128 CC: [id number] DICTATION DATE: 04/19/16 112 HEALTH EDUCATION DIRECTOR: 04/19/16 1218 ADM IN [place] [id number] [place] [id number]
--- NOTE | 2016-04-20 14:00 | NUR ---
REPORT CALLED TO KATHY GRANDA LPN.
--- NOTE | 2016-04-20 14:09 | NUR ---
(B)RECEIVED PATIENT SITTING IN A CHAIR AT THE NURSES STATION. ORIENTED X3. RELATES REASON FOR HOSPITALIZATION "TO GET MY MEDICATIONS STRAIGHTENED OUT." SOCIAL AT TIMES WITH PEERS. CALM AND COOPERATIVE. (I)ADMINISTER MEDS AND MONITOR COMPLIANCE. INFORM REGARDING DISCHARGE PLANS. (R)MED COMPLIANT. RELATES "YEA, THAT'S WHAT I WAS TOLD" WHEN TALKING TO PATIENT ABOUT DISCHARGE. SIGNED DISCHARGE PAPERWORK HOWEVER IS NOT THE HAPPIEST ABOUT GOING BACK TO [place]. (P)CONTINUE POC AND MAINTAIN FALL PRECAUTIONS.
--- NOTE | 2016-04-20 16:30 | NUR ---
DISCHARGED TO [facility]. WITH JULIAN STAFF VIA FACILITY VEHICLE.PERSONAL BELONGINGS RETURNED TO PATIENT, PAPERWORK SENT WITH FACILITY STAFF. CONDITION STABLE AT TIME OF DC.
--- NOTE | 2016-04-27 10:22 | DS ---
PATIENT:JULIO LEE :49 MEDICAL RECORD: [id number] DISCHARGE SUMMARY ADMISSION DATE: 04/02/16 DISCHARGE DATE: 04/20/16 DATE OF ADMISSION: 04/02/2016 DATE OF DISCHARGE: 04/20/2016 HISTORY OF PRESENT ILLNESS: This is one of numerous lifetime psychiatric contacts and hospitalizations for this 70-year-old white female. The patient had been treated for psychiatric problems when she was younger and previously had a diagnosis of schizophrenia. She was admitted on referral from a local fpc because she had become increasingly suspicious, paranoid, uncooperative and noncompliant. For further details, please see previously dictated history. COURSE IN THE HOSPITAL: The patient was seen in consultation by Dr. Walton. Current medical problems included chronic obstructive pulmonary disease, hypertension, hypothyroidism, gastroesophageal reflux disease, hyperlipidemia and vitamin D deficiency. The patient was started on Zyprexa Zydis and dosage was stabilized at 5 mg b.i.d. with good resolution of symptoms. Other nonpsychiatric medications included Diflucan, Diovan, hydrochlorothiazide, Lasix, vitamin D, Protonix, Synthroid, trazodone for insomnia, Topamax, Zocor, K-Dur, Lopressor and Singulair. The patient did well over the course of the hospitalization. She became increasingly cooperative. By the time of discharge, she was felt to be stable enough to return to the [facility]pc. FINAL DIAGNOSES: AXIS I: Schizophrenia, chronic -- improved. AXIS II: No diagnosis. AXIS III: Chronic obstructive pulmonary disease, hypothyroidism, hypertension, and gastroesophageal reflux disease. AXIS IV: Moderate. AXIS V: 45. PLAN: 1. The patient is discharged on the current medications. 2. Diet and activities as tolerated. 3. Follow up with primary care physician. TRANSINT:[id number] Voice Confirmation ID: [id number] DOCUMENT ID: [id number] KALEY ISRAEL III, MD at 1022 CC: [id number] DICTATION DATE: 04/20/16 1156 PUBLIC RELATIONS INTERN: 04/21/16 0621 DIS IN 04/20/16 [place] [address]
== END 2016-04-20 16:25 | DRG 885 ==
LOC: D.PSYCH 14:26
PROVIDERS: ADMIT Psychiatry & Neurology Psychiatry
DX: F20.0 Paranoid schizophrenia (principal); J44.9 Chronic obstructive pulmonary disease, unspecified; E03.9 Hypothyroidism, unspecified; I11.0 Hypertensive heart disease with heart failure; I50.9 Heart failure, unspecified; K21.9 Gastro-esophageal reflux disease without esophagitis; F41.9 Anxiety disorder, unspecified; F32.9 Major depressive disorder, single episode, unspecified; E55.9 Vitamin D deficiency, unspecified; G47.00 Insomnia, unspecified; E78.5 Hyperlipidemia, unspecified; E66.9 Obesity, unspecified; M79.7 Fibromyalgia; I89.0 Lymphedema, not elsewhere classified; B37.2 Candidiasis of skin and nail